=== PATIENT | female | born 1955 | race African-American/Black ===

== ENCOUNTER 2021-12-25 09:43 | Inpatient (IN) | payer MEDICARE ==
[~2021-12-25] VITALS: Ht 170.2 cm; Wt 91.2 kg
[~2021-12-25 09:43] MED LIST: AMOX500T2; ASEN10TA10; ASPI-1079; BUPR-315; BUSP30TA2; FURO-151; LEVO88CA2; POTA10TA42; SIMV20TA2; [UNRECOGNIZED DRUG - OTHER]
[2021-12-25] MEDS ORDERED: FUROSEMIDE 40MG/4ML VIAL IVP ONE (09:45)
[2021-12-25] MEDS ORDERED: NITROGLYCERIN 0.4MG TABLET SL SL ONE (09:45)
[2021-12-25] MEDS ORDERED: ALBUTEROL (0.083%) 2.5MG/3ML NEB HHN STA (09:45)
[2021-12-25] MEDS ORDERED: IPRATROPIUM BROMIDE (0.02%) 0.5MG/2.5ML NEB HHN STA (09:45)
[2021-12-25 10:12] LABS: EOSINOPHILS % 3.6 % (0.0-5.0); HEMOGLOBIN. 12.3 g/dL (12.0-16.0); LYMPHOCYTES % 30.3 % (20.0-50.0); MEAN CORPUSCULAR VOLUME 87.5 fL (81.0-99.0); MEAN PLATELET VOLUME 8.7 fl (7.4-10.4); MONOCYTES % 6.4 % (2.0-8.0); NEUTROPHILS % 58.7 % (40.0-76.0); PLATELET 225 x1000/uL (130-400); RED BLOOD CELL COUNT 4.23 mill/uL (4.2-5.4); RED CELL DISTRIBUTION WIDTH 14.4 % (11.6-14.6)
[2021-12-25 10:20] LABS: CHLORIDE 107 mEq/L (98-107)
[2021-12-25 11:02] LABS: PARTIAL THROMBOPLASTIN TIME 26.2 sec (23.4-31.0); PROTHROMBIN TIME 10.5 sec (9.6-11.0)
[2021-12-25] MEDS ORDERED: GUAIFENESIN 200MG/10ML SUGAR FREE UDC PO PRN (15:30)
[2021-12-25] MEDS ORDERED: CLONIDINE 0.1MG TABLET PO PRN (15:30)
[2021-12-25] MEDS ORDERED: TRAMADOL 50MG TABLET PO PRN (15:30)
[2021-12-25] MEDS ORDERED: DOCUSATE SODIUM 100MG CAPSULE PO PRN (15:30)
[2021-12-25] MEDS ORDERED: ONDANSETRON HCL 4MG/2ML INJ IV PRN (15:30)
[2021-12-25] MEDS ORDERED: ACETAMINOPHEN 325MG TABLET PO PRN (15:30)
[2021-12-25] MEDS ORDERED: DEXTROSE 50% WATER 50ML SYRINGE IV PRN (15:45)
[2021-12-25] MEDS ORDERED: NALOXONE HCL 0.4MG/ML VIAL IV PRN (15:45)
[2021-12-25 16:09] VITALS: BP 177/88
[2021-12-25] MEDS: INSULIN LISPRO 100 UNITS/ML SUBCUT SCH ×2 (17:15→20:54)
[2021-12-25] MEDS: BLOOD SUGAR DIAGNOSTIC STRIP TEST SCH ×2 (17:37→20:54)
[2021-12-25] MEDS: LISINOPRIL 5MG TABLET PO SCH (17:39)
[2021-12-25] MEDS: ENOXAPARIN 40MG/0.4ML SYR SUBCUT SCH (17:40)
[2021-12-25 20:00] VITALS: BP 131/67
[2021-12-25] MEDS: IPRATROPIUM/ALBUTEROL 0.5-3(2.5)MG/3ML NEB HHN SCH (20:03)
[2021-12-25] MEDS: ATORVASTATIN CALCIUM 20MG TABLET PO SCH (20:52)
[2021-12-25] MEDS ORDERED: TRAZODONE HCL 50MG TABLET PO PRN (21:00)
[2021-12-26] VITALS: BP 125/65
[2021-12-26] MEDS: IPRATROPIUM/ALBUTEROL 0.5-3(2.5)MG/3ML NEB HHN SCH ×4 (00:23→21:30)
[2021-12-26 04:00] VITALS: BP 134/65
[2021-12-26] MEDS: BLOOD SUGAR DIAGNOSTIC STRIP TEST SCH ×4 (06:01→20:35)
[2021-12-26] MEDS: LEVOTHYROXINE SODIUM 88MCG TABLET PO SCH (06:01)
[2021-12-26] MEDS: INSULIN LISPRO 100 UNITS/ML SUBCUT SCH ×4 (06:02→20:36)
[2021-12-26 07:59] LABS: CHLORIDE 103 mEq/L (98-107)
[2021-12-26 08:00] VITALS: BP 169/88
[2021-12-26 08:01] LABS: BASOPHILS % 0.7 % (0.0-2.0); EOSINOPHILS % 2.9 % (0.0-5.0); HEMATOCRIT. 34.3 % (36.0-48.0); HEMOGLOBIN. 11.3 g/dL (12.0-16.0); MEAN CORPUSCULAR HEMOGLOBIN 28.8 pg (28.0-32.0); MEAN CORPUSCULAR VOLUME 87.3 fL (81.0-99.0); MEAN PLATELET VOLUME 8.6 fl (7.4-10.4); MONOCYTES % 9.1 % (2.0-8.0); NEUTROPHILS % 60.3 % (40.0-76.0); PLATELET 179 x1000/uL (130-400); RED BLOOD CELL COUNT 3.93 mill/uL (4.2-5.4); RED CELL DISTRIBUTION WIDTH 14.1 % (11.6-14.6)
[2021-12-26 08:24] LABS: LDL CHOLESTEROL 75 mg/dL (5-100)
[2021-12-26 08:25] LABS: HDL CHOLESTEROL 60 mg/dL (40-59)
[2021-12-26] MEDS: ASPIRIN 81MG TABLET PO SCH (08:55)
[2021-12-26] MEDS: LISINOPRIL 5MG TABLET PO SCH (08:56)
[2021-12-26] MEDS ORDERED: FUROSEMIDE 40MG/4ML VIAL IV SCH (09:00)
[2021-12-26 12:00] VITALS: BP 148/76
[2021-12-26 12:32] LABS: *AMPHETAMINES SCREEN URINE NEGATIVE (NEGATIVE); *BARBITURATES SCREEN URINE NEGATIVE (NEGATIVE); *COCAINE SCREEN URINE NEGATIVE (NEGATIVE)
[2021-12-26 12:34] LABS: *BENZODIAZEPINES SCREEN URINE NEGATIVE (NEGATIVE); CANNABINOID URINE SCREEN NEGATIVE (NEGATIVE); METHADONE URINE SCREEN NEGATIVE (NEGATIVE); OPIATES URINE SCREEN NEGATIVE (NEGATIVE); PHENCYCLIDINE URINE SCREEN NEGATIVE (NEGATIVE)
[2021-12-26 16:00] VITALS: BP 144/72
[2021-12-26] MEDS: FUROSEMIDE 40MG/4ML VIAL IV SCH (17:41)
[2021-12-26] MEDS: ENOXAPARIN 40MG/0.4ML SYR SUBCUT SCH (17:42)
[2021-12-26] MEDS: CARVEDILOL 6.25 MG TABLET PO SCH ×2 (17:49→20:35)
[2021-12-26 20:00] VITALS: BP 117/78
[2021-12-26] MEDS: ATORVASTATIN CALCIUM 20MG TABLET PO SCH (20:35)
[2021-12-27] VITALS: BP 106/58
[2021-12-27] MEDS: IPRATROPIUM/ALBUTEROL 0.5-3(2.5)MG/3ML NEB HHN SCH ×4 (02:55→21:49)
[2021-12-27 04:00] VITALS: BP 151/65
[2021-12-27] MEDS: LEVOTHYROXINE SODIUM 88MCG TABLET PO SCH (05:56)
[2021-12-27] MEDS: BLOOD SUGAR DIAGNOSTIC STRIP TEST SCH ×4 (05:56→21:00)
[2021-12-27] MEDS: FUROSEMIDE 40MG/4ML VIAL IV SCH ×2 (05:56→18:38)
[2021-12-27] MEDS: INSULIN LISPRO 100 UNITS/ML SUBCUT SCH ×4 (06:11→22:13)
[2021-12-27 08:00] VITALS: BP 138/70
[2021-12-27 08:33] LABS: BASOPHILS % 0.9 % (0.0-2.0); EOSINOPHILS % 3.7 % (0.0-5.0); HEMATOCRIT. 37.3 % (36.0-48.0); HEMOGLOBIN. 12.1 g/dL (12.0-16.0); LYMPHOCYTES % 26.7 % (20.0-50.0); MEAN CORPUSCULAR HEMOGLOBIN 28.7 pg (28.0-32.0); MEAN CORPUSCULAR VOLUME 88.4 fL (81.0-99.0); MEAN PLATELET VOLUME 8.6 fl (7.4-10.4); MONOCYTES % 11.5 % (2.0-8.0); NEUTROPHILS % 57.2 % (40.0-76.0); PLATELET 180 x1000/uL (130-400); RED BLOOD CELL COUNT 4.22 mill/uL (4.2-5.4); RED CELL DISTRIBUTION WIDTH 14.4 % (11.6-14.6)
[2021-12-27 08:54] LABS: CHLORIDE 104 mEq/L (98-107)
[2021-12-27] MEDS: ASPIRIN 81MG TABLET PO SCH (09:28)
[2021-12-27] MEDS: CARVEDILOL 6.25 MG TABLET PO SCH ×2 (09:28→21:42)
[2021-12-27] MEDS: LISINOPRIL 5MG TABLET PO SCH (09:29)
[2021-12-27] MEDS: SPIRONOLACTONE 25MG TABLET PO SCH (09:29)
[2021-12-27 12:00] VITALS: BP 138/66
[2021-12-27 16:00] VITALS: BP 140/72
[2021-12-27] MEDS: ENOXAPARIN 40MG/0.4ML SYR SUBCUT SCH (18:38)
[2021-12-27 20:00] VITALS: BP 143/67
[2021-12-27] MEDS: ATORVASTATIN CALCIUM 20MG TABLET PO SCH (21:42)
[2021-12-28] VITALS: BP 149/72
[2021-12-28] MEDS: IPRATROPIUM/ALBUTEROL 0.5-3(2.5)MG/3ML NEB HHN SCH ×4 (01:49→22:10)
[2021-12-28 04:00] VITALS: BP 145/68
[2021-12-28 06:31] LABS: BASOPHILS % 0.9 % (0.0-2.0); EOSINOPHILS % 4.5 % (0.0-5.0); HEMOGLOBIN. 12.2 g/dL (12.0-16.0); LYMPHOCYTES % 33.7 % (20.0-50.0); MEAN CORPUSCULAR HEMOGLOBIN 28.7 pg (28.0-32.0); MEAN CORPUSCULAR VOLUME 86.7 fL (81.0-99.0); MEAN PLATELET VOLUME 8.5 fl (7.4-10.4); MONOCYTES % 10.9 % (2.0-8.0); PLATELET 184 x1000/uL (130-400); RED BLOOD CELL COUNT 4.27 mill/uL (4.2-5.4); RED CELL DISTRIBUTION WIDTH 14.4 % (11.6-14.6)
[2021-12-28] MEDS: BLOOD SUGAR DIAGNOSTIC STRIP TEST SCH (06:33)
[2021-12-28 06:37] LABS: CHLORIDE 103 mEq/L (98-107)
[2021-12-28] MEDS: LEVOTHYROXINE SODIUM 88MCG TABLET PO SCH (06:47)
[2021-12-28] MEDS: FUROSEMIDE 40MG/4ML VIAL IV SCH ×2 (06:47→17:00)
[2021-12-28 08:00] VITALS: BP 145/75
[2021-12-28] MEDS: ASPIRIN 81MG TABLET PO SCH (08:43)
[2021-12-28] MEDS: SPIRONOLACTONE 25MG TABLET PO SCH (08:44)
[2021-12-28] MEDS: LISINOPRIL 5MG TABLET PO SCH (08:44)
[2021-12-28] MEDS: CARVEDILOL 6.25 MG TABLET PO SCH ×2 (08:44→21:40)
[2021-12-28] MEDS: INSULIN LISPRO 100 UNITS/ML SUBCUT SCH (08:52)
[2021-12-28 12:00] VITALS: BP 135/67
[2021-12-28 15:59] VITALS: BP 141/68
[2021-12-28] MEDS: ENOXAPARIN 40MG/0.4ML SYR SUBCUT SCH (16:55)
[2021-12-28] MEDS: METFORMIN HCL 500MG TABLET PO SCH (16:55)
[2021-12-28 20:00] VITALS: BP 132/60
[2021-12-28] MEDS: ATORVASTATIN CALCIUM 20MG TABLET PO SCH (21:38)
[2021-12-29] VITALS: BP 136/64
[2021-12-29] MEDS: IPRATROPIUM/ALBUTEROL 0.5-3(2.5)MG/3ML NEB HHN SCH ×2 (02:23→08:16)
[2021-12-29 04:00] VITALS: BP 128/55
[2021-12-29] MEDS: FUROSEMIDE 40MG/4ML VIAL IV SCH (05:46)
[2021-12-29] MEDS: LEVOTHYROXINE SODIUM 88MCG TABLET PO SCH (05:46)
[2021-12-29 07:34] LABS: BASOPHILS % 1.2 % (0.0-2.0); EOSINOPHILS % 4.8 % (0.0-5.0); HEMATOCRIT. 36.8 % (36.0-48.0); HEMOGLOBIN. 12.2 g/dL (12.0-16.0); LYMPHOCYTES % 38.8 % (20.0-50.0); MEAN CORPUSCULAR HEMOGLOBIN 28.8 pg (28.0-32.0); MEAN PLATELET VOLUME 8.7 fl (7.4-10.4); MONOCYTES % 13.3 % (2.0-8.0); NEUTROPHILS % 41.9 % (40.0-76.0); PLATELET 196 x1000/uL (130-400); RED BLOOD CELL COUNT 4.23 mill/uL (4.2-5.4); RED CELL DISTRIBUTION WIDTH 14.6 % (11.6-14.6)
[2021-12-29 07:44] LABS: CHLORIDE 102 mEq/L (98-107)
[2021-12-29 08:00] VITALS: BP 146/72
[2021-12-29] MEDS: LISINOPRIL 5MG TABLET PO SCH ×2 (09:00→10:17)
[2021-12-29] MEDS: ASPIRIN 81MG TABLET PO SCH (10:17)
[2021-12-29] MEDS: METFORMIN HCL 500MG TABLET PO SCH (10:17)
[2021-12-29] MEDS: SPIRONOLACTONE 25MG TABLET PO SCH (10:18)
[2021-12-29] MEDS: CARVEDILOL 6.25 MG TABLET PO SCH (10:18)
[2021-12-29] MEDS ORDERED: METF-414 PO (11:23)
[2021-12-29] MEDS ORDERED: FURO-151 MT (11:23)
[2021-12-29] MEDS ORDERED: COR6 PO (11:23)
[2021-12-29] MEDS ORDERED: SPIR25TA PO (11:23)
[2021-12-29] MEDS ORDERED: LEVO88TA7 PO (11:23)
[2021-12-29 12:03] VITALS: BP 146/72
== END 2021-12-29 12:44 | disposition home or self-care (01) | DRG 280 ==
LOC: ER 09:54 → 5WST 10:55 → EDBEDREQ 11:00 → ENRESERV 14:10
PROVIDERS: ADMIT Internal Medicine; ATTEND Internal Medicine
DX: I11.0 Hypertensive heart disease with heart failure (principal); I21.A1 Myocardial infarction type 2; I50.23 Acute on chronic systolic (congestive) heart failure; J96.01 Acute respiratory failure with hypoxia; E78.5 Hyperlipidemia, unspecified; E11.65 Type 2 diabetes mellitus with hyperglycemia; I08.2 Rheumatic disorders of both aortic and tricuspid valves; Z20.822 Contact with and (suspected) exposure to COVID-19; E03.9 Hypothyroidism, unspecified; I27.20 Pulmonary hypertension, unspecified; Z79.82 Long term (current) use of aspirin; Z95.3 Presence of xenogenic heart valve; Z82.49 Family history of ischemic heart disease and other diseases of the circulatory system
CPT/HCPCS: 36415; 71045; 80048; 80053; 80061; 80305; 82962; 83036; 83605; 83735; 83880; 84145; 84443; 84484; 85025; 87426; 93005; 93306; 94640; 99291; J1650; J1815; J1940

== ENCOUNTER 2023-02-05 08:33 | Inpatient (IN) | payer MEDICARE, OTHER ==
[~2023-02-05] VITALS: Ht 172.7 cm; Wt 79.4 kg
[2023-02-05] VITALS (33 sets, daily range): BP systolic 127–171; BP diastolic 65–93
[~2023-02-05 08:33] MED LIST changes: -AMOX500T2; -ASEN10TA10; +COR6 PO; -FURO-151; +FURO-151 MT; +LEVO88TA7 PO; +METF-414 PO; -POTA10TA42; +SIMV-343; -SIMV20TA2; +SPIR25TA PO; -[UNRECOGNIZED DRUG - OTHER]
[2023-02-05] MEDS ORDERED: NITROGLYCERIN 50MG PREMIX 250 ML IV ONE (08:45)
[2023-02-05 08:59] LABS: BASOPHILS % 1.3 % (0.0-2.0); HEMATOCRIT. 35.8 % (36.0-48.0); HEMOGLOBIN. 11.6 g/dL (12.0-16.0); LYMPHOCYTES % 43.5 % (20.0-50.0); MEAN CORPUSCULAR HEMOGLOBIN 28.9 pg (28.0-32.0); MEAN CORPUSCULAR VOLUME 89.4 fL (81.0-99.0); MEAN PLATELET VOLUME 9.5 fl (7.4-10.4); MONOCYTES % 5.8 % (2.0-8.0); NEUTROPHILS % 47.4 % (40.0-76.0); PLATELET 193 x1000/uL (130-400); RED CELL DISTRIBUTION WIDTH 14.6 % (11.6-14.6)
[2023-02-05] MEDS ORDERED: FUROSEMIDE 40MG/4ML VIAL IVP ONE (09:00)
[2023-02-05 09:06] LABS: CHLORIDE 111 mEq/L (98-107)
[2023-02-05] MEDS ORDERED: NITROGLYCERIN 50MG PREMIX 250 ML IV SCH (09:15)
[2023-02-05 09:22] LABS: PROTHROMBIN TIME 10.8 sec (9.6-11.0)
[2023-02-05] MEDS ORDERED: ASPIRIN 325MG EC TABLET PO NR (09:45)
[2023-02-05] MEDS ORDERED: LORAZEPAM 0.5MG TABLET PO PRN (10:45)
[2023-02-05] MEDS ORDERED: ACETAMINOPHEN 325MG TABLET PO PRN (10:45)
[2023-02-05] MEDS ORDERED: CLONIDINE 0.1MG TABLET PO PRN (10:45)
[2023-02-05] MEDS ORDERED: ZOLPIDEM TARTRATE 5MG TABLET PO PRN (10:45)
[2023-02-05] MEDS ORDERED: ONDANSETRON HCL 4MG/2ML INJ IV PRN (10:45)
[2023-02-05] MEDS ORDERED: IPRATROPIUM/ALBUTEROL 0.5-3(2.5)MG/3ML NEB NEB PRN (10:45)
[2023-02-05] MEDS ORDERED: AMLODIPINE 5MG TABLET PO SCH (11:00)
[2023-02-05] MEDS: ENOXAPARIN 30MG/0.3ML SYR SUBCUT SCH (11:00)
[2023-02-05] MEDS: PANTOPRAZOLE SODIUM 40 MG/VIAL IV SCH (11:14)
[2023-02-05] MEDS: ALBUTEROL (0.083%) 2.5MG/3ML NEB HHN SCH ×2 (11:35→20:02)
[2023-02-05] MEDS: IPRATROPIUM BROMIDE (0.02%) 0.5MG/2.5ML NEB HHN SCH ×2 (11:35→20:02)
[2023-02-05] MEDS: DOXAZOSIN MESYLATE 4MG TABLET PO SCH ×2 (13:00→21:50)
[2023-02-05] MEDS: HYDRALAZINE HCL 25MG TABLET PO SCH ×2 (13:56→21:49)
[2023-02-05] MEDS ORDERED: BUSP15TA3 PO (14:00)
[2023-02-05] MEDS ORDERED: ATOR40TA70 MT (14:01)
[2023-02-05] MEDS ORDERED: ASEN10TA10 SL (14:02)
[2023-02-05] MEDS ORDERED: CLON0.2T PO (14:03)
[2023-02-05] MEDS ORDERED: DAPA5TAB PO (14:04)
[2023-02-05] MEDS ORDERED: MIRT-89 PO (14:06)
[2023-02-05 17:31] LABS: CREATINE KINASE MB FRACTION 1.2 ng/mL (0.5-3.6)
[2023-02-05] MEDS ORDERED: DEXTROSE 50% WATER 50ML SYRINGE IV PRN (20:45)
[2023-02-05] MEDS: INSULIN LISPRO 100 UNITS/ML SUBCUT SCH (21:00)
[2023-02-05] MEDS: BLOOD SUGAR DIAGNOSTIC STRIP TEST SCH (21:00)
[2023-02-05] MEDS ORDERED: CARVEDILOL 6.25 MG TABLET PO SCH ×2 (21:00)
[2023-02-05] MEDS: FUROSEMIDE 40MG/4ML VIAL IVP SCH (21:49)
[2023-02-05] MEDS: NITROGLYCERIN OINT 1GM/INCH UDPKT TD SCH (21:50)
[2023-02-05 23:22] LABS: *AMPHETAMINES SCREEN URINE NEGATIVE (NEGATIVE); *BARBITURATES SCREEN URINE NEGATIVE (NEGATIVE); *BENZODIAZEPINES SCREEN URINE NEGATIVE (NEGATIVE); *COCAINE SCREEN URINE NEGATIVE (NEGATIVE); CANNABINOID URINE SCREEN NEGATIVE (NEGATIVE); METHADONE URINE SCREEN NEGATIVE (NEGATIVE); OPIATES URINE SCREEN NEGATIVE (NEGATIVE); PHENCYCLIDINE URINE SCREEN NEGATIVE (NEGATIVE)
[2023-02-06] VITALS (39 sets, daily range): BP systolic 92–133; BP diastolic 56–80
[2023-02-06 00:17] LABS: CREATINE KINASE MB FRACTION 1.8 ng/mL (0.5-3.6)
[2023-02-06] MEDS: IPRATROPIUM BROMIDE (0.02%) 0.5MG/2.5ML NEB HHN SCH ×4 (01:39→20:33)
[2023-02-06] MEDS: ALBUTEROL (0.083%) 2.5MG/3ML NEB HHN SCH ×4 (01:39→20:32)
[2023-02-06 04:47] LABS: BASOPHILS % 0.8 % (0.0-2.0); EOSINOPHILS % 0.9 % (0.0-5.0); HEMATOCRIT. 34.7 % (36.0-48.0); HEMOGLOBIN. 11.3 g/dL (12.0-16.0); LYMPHOCYTES % 23.7 % (20.0-50.0); MEAN CORPUSCULAR HEMOGLOBIN 28.5 pg (28.0-32.0); MEAN CORPUSCULAR VOLUME 87.1 fL (81.0-99.0); MEAN PLATELET VOLUME 9.5 fl (7.4-10.4); MONOCYTES % 8.4 % (2.0-8.0); NEUTROPHILS % 66.2 % (40.0-76.0); PLATELET 185 x1000/uL (130-400); RED BLOOD CELL COUNT 3.99 mill/uL (4.2-5.4); RED CELL DISTRIBUTION WIDTH 14.1 % (11.6-14.6)
[2023-02-06] MEDS: BLOOD SUGAR DIAGNOSTIC STRIP TEST SCH ×3 (05:50→17:00)
[2023-02-06] MEDS: NITROGLYCERIN OINT 1GM/INCH UDPKT TD SCH ×3 (06:35→23:55)
[2023-02-06] MEDS: INSULIN LISPRO 100 UNITS/ML SUBCUT SCH ×3 (06:35→17:00)
[2023-02-06] MEDS: PANTOPRAZOLE SODIUM 40 MG/VIAL IV SCH (09:00)
[2023-02-06] MEDS: FUROSEMIDE 40MG/4ML VIAL IVP SCH (09:00)
[2023-02-06] MEDS: ASPIRIN 81MG TABLET PO SCH (09:00)
[2023-02-06] MEDS: AMLODIPINE 2.5MG TABLET PO SCH ×3 (09:01→17:33)
[2023-02-06] MEDS: CARVEDILOL 6.25 MG TABLET PO SCH ×2 (09:01→23:52)
[2023-02-06] MEDS: LEVOTHYROXINE SODIUM 88MCG TABLET PO SCH (09:01)
[2023-02-06] MEDS: BUPROPION HCL 150MG TABLET XL 24HR PO SCH (09:02)
[2023-02-06] MEDS: SPIRONOLACTONE 25MG TABLET PO SCH (09:02)
[2023-02-06] MEDS: ENOXAPARIN 30MG/0.3ML SYR SUBCUT SCH (11:50)
[2023-02-06] MEDS: HYDRALAZINE HCL 50MG TABLET PO SCH ×2 (14:00→23:51)
[2023-02-06] MEDS: DOXAZOSIN MESYLATE 4MG TABLET PO SCH (23:51)
[2023-02-07] VITALS (7 sets, daily range): BP systolic 122–146; BP diastolic 60–80
[2023-02-07] MEDS: FUROSEMIDE 40MG/4ML VIAL IVP SCH ×2 (00:23→08:48)
[2023-02-07] MEDS: INSULIN LISPRO 100 UNITS/ML SUBCUT SCH ×3 (00:25→12:55)
[2023-02-07] MEDS: BLOOD SUGAR DIAGNOSTIC STRIP TEST SCH ×3 (00:27→11:54)
[2023-02-07] MEDS: ALBUTEROL (0.083%) 2.5MG/3ML NEB HHN SCH ×3 (01:06→14:06)
[2023-02-07] MEDS: IPRATROPIUM BROMIDE (0.02%) 0.5MG/2.5ML NEB HHN SCH ×3 (01:06→14:06)
[2023-02-07] MEDS: NITROGLYCERIN OINT 1GM/INCH UDPKT TD SCH (06:00)
[2023-02-07] MEDS: LEVOTHYROXINE SODIUM 88MCG TABLET PO SCH (06:13)
[2023-02-07] MEDS: HYDRALAZINE HCL 50MG TABLET PO SCH ×2 (06:14→15:07)
[2023-02-07 06:37] LABS: BASOPHILS % 0.8 % (0.0-2.0); EOSINOPHILS % 0.5 % (0.0-5.0); HEMATOCRIT. 35.3 % (36.0-48.0); HEMOGLOBIN. 11.6 g/dL (12.0-16.0); LYMPHOCYTES % 19.4 % (20.0-50.0); MEAN CORPUSCULAR HEMOGLOBIN 28.7 pg (28.0-32.0); MEAN CORPUSCULAR VOLUME 87.5 fL (81.0-99.0); MEAN PLATELET VOLUME 9.4 fl (7.4-10.4); MONOCYTES % 9.5 % (2.0-8.0); NEUTROPHILS % 69.8 % (40.0-76.0); PLATELET 184 x1000/uL (130-400); RED BLOOD CELL COUNT 4.03 mill/uL (4.2-5.4); RED CELL DISTRIBUTION WIDTH 14.7 % (11.6-14.6)
[2023-02-07] MEDS: PANTOPRAZOLE SODIUM 40 MG/VIAL IV SCH (08:48)
[2023-02-07] MEDS: CARVEDILOL 6.25 MG TABLET PO SCH (08:48)
[2023-02-07] MEDS: SPIRONOLACTONE 25MG TABLET PO SCH (08:49)
[2023-02-07] MEDS: BUPROPION HCL 150MG TABLET XL 24HR PO SCH (08:49)
[2023-02-07] MEDS: ASPIRIN 81MG TABLET PO SCH (08:49)
[2023-02-07] MEDS: AMLODIPINE 2.5MG TABLET PO SCH (08:51)
[2023-02-07] MEDS: ENOXAPARIN 30MG/0.3ML SYR SUBCUT SCH (12:55)
[2023-02-07] MEDS ORDERED: ALBUTEROL (0.083%) 2.5MG/3ML NEB HHN PRN (13:00)
[2023-02-07] MEDS ORDERED: IPRATROPIUM BROMIDE (0.02%) 0.5MG/2.5ML NEB HHN PRN (13:00)
[2023-02-07] MEDS ORDERED: COR6 PO (15:21)
[2023-02-07] MEDS ORDERED: DOXA4TAB2 PO (15:21)
[2023-02-07] MEDS ORDERED: FURO-151 MT (15:21)
[2023-02-08] MEDS ORDERED: FAMOTIDINE 20MG TABLET PO SCH (09:00)
== END 2023-02-07 16:39 | disposition home health service (06) | DRG 280 ==
LOC: ER 08:33 → MICUSO 10:18 → 7EST 02-06 18:28
PROVIDERS: ADMIT Internal Medicine; ATTEND Internal Medicine
DX: I11.0 Hypertensive heart disease with heart failure (principal); I21.4 Non-ST elevation (NSTEMI) myocardial infarction; I50.43 Acute on chronic combined systolic (congestive) and diastolic (congestive) heart failure; J96.01 Acute respiratory failure with hypoxia; I16.1 Hypertensive emergency; N17.9 Acute kidney failure, unspecified; I24.8 Other forms of acute ischemic heart disease; E11.9 Type 2 diabetes mellitus without complications; E03.9 Hypothyroidism, unspecified; E78.5 Hyperlipidemia, unspecified; I42.9 Cardiomyopathy, unspecified; Z95.3 Presence of xenogenic heart valve; Z88.8 Allergy status to other drugs, medicaments and biological substances; Z79.899 Other long term (current) drug therapy
CPT/HCPCS: 36415; 71045; 80048; 80053; 80061; 80305; 82550; 82553; 82962; 83036; 83735; 83880; 84484; 85025; 93005; 93306; 94640; 99291; C9113; J1650; J1815; J1940; J3490